=== PATIENT | female | born 1980 | race Caucasian/White ===

== ENCOUNTER 2017-09-28 02:07 | Emergency (ER) | payer SELFPAY ==
[~2017-09-28] VITALS: Ht 167.6 cm; Wt 49.4 kg
--- NOTE | 2017-09-28 02:30 | NUR ---
PT DECIDED NOT TO BE SEEN AFTER TEMP WAS 98.0
[2017-09-28] MEDS ORDERED: MACROBID (02:39)
== END 2017-09-28 02:35 | disposition left against medical advice (07) ==
LOC: ER 02:11
DX: Z53.21 Procedure and treatment not carried out due to patient leaving prior to being seen by health care provider (principal)
CPT/HCPCS: A4663